=== PATIENT | male | born 1935 | race Two or more races ===

== ENCOUNTER 2018-05-04 18:20 | Emergency (ER) | payer MEDICARE, MEDICAID ==
[~2018-05-04] VITALS: Ht 177.8 cm; Wt 81.6 kg
[2018-05-04 18:49] VITALS: BP 190/86
== END 2018-05-04 23:20 | disposition left against medical advice (07) ==
LOC: ER 18:26
DX: M54.5 Low back pain (principal); Z53.21 Procedure and treatment not carried out due to patient leaving prior to being seen by health care provider; W11.XXXA Fall on and from ladder, initial encounter; Y93.89 Activity, other specified; Y99.8 Other external cause status; Y92.89 Other specified places as the place of occurrence of the external cause
CPT/HCPCS: 72100